=== PATIENT | female | born 1995 ===

== ENCOUNTER 2017-04-11 14:36 | Emergency (ER) | payer BC, OTHER ==
--- NOTE | 2017-04-11 15:22 | EDM.PDOC ---
ED HPI GENERAL MEDICAL PROBLEM - General Chief Complaint: Lower Extremity Injury/Pain Stated Complaint: POSS. BLOOD CLOT Time Seen by Provider: 04/11/17 14:58 Source of Information: Reports: Patient History Limitations: Reports: No Limitations - History of Present Illness INITIAL COMMENTS - FREE TEXT/NARRATIVE: Patient is a 21 year old female who presents to the E.D. complaining of right thigh swelling and inner thigh pain. Patient states Monday night she was walking down a few stairs missed the last two steps falling landing on her knee causing slight bruising to her right cloud. States her low back was strained at that time and has been evaluated by a chiropractor with only massage as treatment. Patient states this a.m. awoke with swelling to the right thigh and pain. She is concerned about a blood clot. Also has mild pain to the adnexal area with onset of swelling today. She has full range of motion of her lower extremities. Notices increased pain to the inner thigh with weightbearing. She has no history of DVT/PE, recent hospitalization, cancer, smoking history, being , recent surgery, or bed confinement. Patient does take control. She does not have any additional past medical history and currently taking no additional medications. Surgical history noncontributory. She denies any chest pain, shortness of breath, fever, numbness or tingling to extremities , pain to the posterior aspect of right calf, or any additional complaint. Right Lower Leg Pain Score (Numeric/FACES): 5 - Related Data Allergies Allergy/AdvReac Type Severity Reaction Status Date / Time No Known Allergies Allergy Verified 04/13/17 06:26 Home Meds: Home Meds Hydrocodone/Acetaminophen [[place] 5-325 Tablet] 1 each PO QID PRN #15 tablet [Rx] Apixaban [Eliquis] 10 tab PO BID 04/12/17 [History] Past Medical History - Past Surgical History HEENT Surgical History: Reports: Tonsillectomy Social & Family History - Family History Family Medical History: Noncontributory - Tobacco Use Smoking Status *Q: Never Smoker Second Hand Smoke Exposure: No - Caffeine Use Caffeine Use: Reports: Coffee, Soda - Recreational Drug Use Recreational Drug Use: No - Living Situation & Occupation Living situation: Reports: Single Occupation: Unemployed Review of Systems - Review of Systems Review Of Systems: ROS reveals no pertinent complaints other than HPI. ED EXAM, GENERAL - Physical Exam Exam: See Below Exam Limited By: No Limitations General Appearance: Alert, WD/WN, No Apparent Distress Ears: Hearing Grossly Normal Nose: Normal Inspection Throat/Mouth: Normal Voice, No Airway Compromise Head: Atraumatic, Normocephalic Neck: Normal Inspection, Supple Respiratory/Chest: No Respiratory Distress, Lungs Clear, Normal Breath Sounds, No Accessory Muscle Use Cardiovascular: Normal Peripheral Pulses, Regular Rate, Rhythm, No Murmur Peripheral Pulses: 4+: Radial (L), Posterior Tibial (L), Posterior Tibial (R) GI/Abdominal: Normal Bowel Sounds, Soft, Non-Tender, No Organomegaly, No Distention Back Exam: Normal Inspection Extremities: Other (Swelling noted to the right thigh incomparison to the left. Thigh is taunt painful on palpation with no ecchymosis or redness present. No bony abnormalities noted as well. Increasing pain along the medial aspect of the left right inner thigh along the inguinal region. No ecchymosis, bony abnormalities present. No wounds present or redness. Decreased range of motion noted with flexion and extension of the upper leg at the hip. Pain along the PIP proximal surface. No pain to the lateral aspect of the right hip. Mild ecchymosis noted to the anterior aspect of the right lower leg. No pain along the posterior aspect of the calf. Full range of motion distal to the knee along with no sensory deficits.) Neurological: Alert, Oriented, CN II-XII Intact, Normal Cognition, No Motor/ Sensory Deficits Psychiatric: Normal Affect, Normal Mood Skin Exam: Warm, Dry, Intact, Normal Color Course - Vital Signs Last Recorded V/S: Last Vital Signs Temp 98.2 F 04/11/17 19:19 Pulse 97 04/11/17 19:19 Resp 20 04/11/17 19:52 BP 111/75 04/11/17 19:52 Pulse Ox 98 04/11/17 19:52 - Orders/Labs/Meds Labs: Laboratory Tests 04/11/17 04/11/17 04/11/17 Range/Units 15:45 15:45 15:45 WBC 10.65 H (3.98-10.04) K/mm3 RBC 4.65 (3.98-5.22) M/mm3 Hgb 13.5 (11.2-15.7) gm/L Hct 41.1 (34.1-44.9) % MCV 88.4 (79.4-94.8) fl MCH 29.0 (25.6-32.2) pg MCHC 32.8 (32.2-35.5) g/dl RDW Std Deviation 41.1 (36.4-46.3) fL Plt Count 309 (182-369) K/mm3 MPV 9.5 (9.4-12.3) fl Neut % (Auto) 77.3 H (34.0-71.1) % Lymph % (Auto) 14.6 L (19.3-51.7) % Spencer % (Auto) 6.9 (4.7-12.5) % Eos % (Auto) 0.8 (0.7-5.8) Baso % (Auto) 0.2 (0.1-1.2) % Neut # (Auto) 8.22 H (1.56-6.13) K/mm3 Lymph # (Auto) 1.56 (1.18-3.74) K/mm3 Spencer # (Auto) 0.74 H (0.24-0.36) K/mm3 Eos # (Auto) 0.09 (0.04-0.36) K/mm3 Baso # (Auto) 0.02 (0.01-0.08) K/mm3 D-Dimer, Quantitative 11.93 H (0.19-0.59) mg/L Sodium 139 (136-145) mEq/L Potassium 4.8 (3.5-5.1) mEq/L Chloride 105 (98-107) mEq/L Carbon Dioxide 22 (21-32) mEq/L Anion Gap 16.8 H (5-15) BUN 7 (7-18) mg/dL Creatinine 0.8 (0.55-1.02) mg/dL Est Cr Clr Drug Dosing 109.08 mL/min Estimated GFR (MDRD) > 60 (>60) mL/min BUN/Creatinine Ratio 8.8 L (14-18) Glucose 90 (74-106) mg/dL Calcium 9.1 (8.5-10.1) mg/dL Total Bilirubin 0.5 (0.2-1.0) mg/dL AST 16 (15-37) U/L ALT 10 L (14-59) U/L Alkaline Phosphatase 61 (46-116) U/L Total Protein 7.6 (6.4-8.2) g/dl Albumin 3.4 (3.4-5.0) g/dl Globulin 4.2 gm/dL Albumin/Globulin Ratio 0.8 L (1-2) HCG, Qual (NEGATIVE) 04/11/17 Range/Units 15:45 WBC (3.98-10.04) K/mm3 RBC (3.98-5.22) M/mm3 Hgb (11.2-15.7) gm/L Hct (34.1-44.9) % MCV (79.4-94.8) fl MCH (25.6-32.2) pg MCHC (32.2-35.5) g/dl RDW Std Deviation (36.4-46.3) fL Plt Count (182-369) K/mm3 MPV (9.4-12.3) fl Neut % (Auto) (34.0-71.1) % Lymph % (Auto) (19.3-51.7) % Spencer % (Auto) (4.7-12.5) % Eos % (Auto) (0.7-5.8) Baso % (Auto) (0.1-1.2) % Neut # (Auto) (1.56-6.13) K/mm3 Lymph # (Auto) (1.18-3.74) K/mm3 Spencer # (Auto) (0.24-0.36) K/mm3 Eos # (Auto) (0.04-0.36) K/mm3 Baso # (Auto) (0.01-0.08) K/mm3 D-Dimer, Quantitative (0.19-0.59) mg/L Sodium (136-145) mEq/L Potassium (3.5-5.1) mEq/L Chloride (98-107) mEq/L Carbon Dioxide (21-32) mEq/L Anion Gap (5-15) BUN (7-18) mg/dL Creatinine (0.55-1.02) mg/dL Est Cr Clr Drug Dosing mL/min Estimated GFR (MDRD) (>60) mL/min BUN/Creatinine Ratio (14-18) Glucose (74-106) mg/dL Calcium (8.5-10.1) mg/dL Total Bilirubin (0.2-1.0) mg/dL AST (15-37) U/L ALT (14-59) U/L Alkaline Phosphatase (46-116) U/L Total Protein (6.4-8.2) g/dl Albumin (3.4-5.0) g/dl Globulin gm/dL Albumin/Globulin Ratio (1-2) HCG, Qual Negative (NEGATIVE) Meds: Medications Discontinued Medications Generic Name Dose Route Start Last Admin Trade Name Onurq PRN Reason Stop Dose Admin Hydrocodone Bitart/Acetaminophen 1 tab 04/11/17 19:48 [place] 325-5 Mg PO 04/11/17 19:49 ONETIME ONE Apixaban 10 mg 04/11/17 19:12 04/11/17 19:29 Eliquis PO 04/11/17 19:13 10 mg ONETIME ONE Administration Iopamidol 100 ml 04/11/17 18:18 04/11/17 18:36 Isovue-370 (76%) IVPUSH 04/11/17 18:19 100 ml ONETIME ONE Administration Sodium Chloride 10 ml 04/11/17 18:18 04/11/17 18:36 Saline Flush FLUSH 04/11/17 18:19 10 ml ONETIME ONE Administration - Re-Assessments/Exams Free Text/Narrative Re-Assessment/Exam: Will obtain basic labs including CBC, chem 14, hcg, d-dimer, x-ray of the femur , and x-ray of the pelvis. 04/11/17 15:42 x-ray of the right femur and also pelvis did not reveal any acute bony abnormalities. Awaiting results of the above labs. 04/11/17 16:30 d-dimer 11.93. Ordered VL duplex right lower extremity. 1736 Right lower extremity deep venous ultrasound: Duplex and color flow imaging was obtained of the right common femoral, greater saphenous, superficial femoral, popliteal, posterior tibial and peroneal veins. Left common femoral vein was also evaluated. Findings: Increased echoes are identified within the right common femoral through popliteal veins. Findings are felt compatible with acute deep venous thrombosis which is incompletely occluding at this time. Left common femoral vein is patent. Impression: 1. Findings compatible with DVT as noted above. Reassessment, shared results of ultrasound with patient. Patient complaining of right adnexal pain described as severe in nature. Will order CT of the abdomen and pelvis with IV contrast with a [address] Cardona. Awaiting results of CT of the abdomen and pelvis. Discussed with patient and mother pro's and con's with taking warfarin, xarelto, and eliquis. Benefits, alternatives, and risks of all medications discussed with patient in great detail. All questions answered. Patient has elected to go with eliquis. Mother stated she had a history of blood clot to her lung this past year after traveling to [place] with her right arm bent for extended period of time. In addition grandmother has a history of blood clots as well. Mother was on Eliquis for quite some time and has transitioned to aspirin on her own accord. She has not been worked up for any hypercoagulable states. Patient will require further workup to rule out hypercoagulable states. Suggest patient follow-up with hematology. In addition she has no primary care provider here locally thus will have patient establish medical care with a PCP at [facility] in [place] within the next week. Will hold off and starting the Eliquis until CT results are back. 04/11/17 19:16 CT abdomen and pelvis Technique: Multiple axial sections were obtained from above the dome of the diaphragm inferiorly through the pubic symphysis. Intravenous contrast given. Findings: Clot is identified within the right common femoral vein extending into the right external iliac vein and right common femoral vein. Inferior vena cava appears to be patent. Visualized lung bases are clear. Liver and spleen appear within normal limits. Incidental note of focal fat near the ligamentum teres fissure. Kidneys show symmetric contrast enhancement without hydronephrosis or mass. Pancreas is within normal limits. Aorta appears unremarkable. No retroperitoneal adenopathy or mesenteric abnormalities are seen. Small amount of free fluid is seen within the cul-de-sac sac believed to be physiologic. No pelvic mass or adenopathy is seen. Appendix is seen which appears normal in size. Bone window settings were reviewed which appears within normal limits for the patient's age. Impression: 1. Diffuse clot within the right common femoral, external iliac and common iliac vein. These veins appear distended with no evidence of other etiology for obstruction. This clot puts the patient at risk for pulmonary embolism. 2. Other incidental findings as noted above. Ordered Eliquis 10mg PO. Discussed results of CT with patient and mother. I am concerned patient may throw a clot and develop PE due to the extensive clot burden present. I have suggested admission to the hospital for the next few days for monitoring. Patient does not want to be transferred to [place] for evaluation for filter placement. Vital signs are stable. SPO2 remains 100% with HR of 98 BPM. [address] Vargas with no answer. Message left for him to call the E.D. Spoke with Dr. Vargas. Does not believe patient requires hospitalization with normal vital signs and patient eliciting no chest pain or shortness of breath. Discussed with family and they were okay with going home. Do not believe patient requires transfer to [place] at this time. Discussed multiple times with patient and family in regards to return precautions. Patient and family have no additional questions or concerns will discharge patient home with instructions as documented. Departure - Departure Time of Disposition: 19:48 Disposition: Home, Self-Care 01 Condition: Good Clinical Impression: Right leg DVT Qualifiers: Affected thrombotic vein of extremity: femoral Chronicity: acute Qualified Code (s): I82.411 - Acute embolism and thrombosis of right femoral vein - Discharge Information Prescriptions: Hydrocodone/Acetaminophen [[place] 5-325 Tablet] 1 each PO QID PRN #15 tablet PRN Reason: Pain (Severe 7-10) Instructions: Deep Vein Thrombosis Referrals: La Nena Amaya [Physician] - Forms: ED Department Discharge, ED Return to Work/School Form Additional Instructions: Take eliquis 10 mg twice a day for 7 days. Thereafter 5mg's twice a day. For severe pain take norco 1 tab every 6 hrs as needed. May use tylenol 650mg every 6 hrs for mild to moderate pain as needed. Do not take tylenol and norco together. Push the fluids. Stop control pills. Followup with a PCP Dr. Sutton/ or Dr. Loaiza at [facility] this week or first part of next wk. Will need followup with Hemotology in the next 2 wks. Suggest calling for appt for PCP and Hematology tomorrow. Refrain from any strenuous activities. Be advised eliquis will increase risk to bleeding if you hit your head and also GI. Please return to the E.D. if you develop shortness of breath , chest pain, or any additional complaints. No driving this evening since receiving a sedative medication while in the E.d.No driving while taking the norco.
--- NOTE | 2017-04-11 17:40 | US ---
Right lower extremity deep venous ultrasound: Duplex and color flow imaging was obtained of the right common femoral, greater saphenous, superficial femoral, popliteal, posterior tibial and peroneal veins. Left common femoral vein was also evaluated. Findings: Increased echoes are identified within the right common femoral through popliteal veins. Findings are felt compatible with acute deep venous thrombosis which is incompletely occluding at this time. Left common femoral vein is patent. Impression: 1. Findings compatible with DVT as noted above. Diagnostic code #5
[2017-04-11] MEDS ORDERED: Iopamidol 755 Mg/ML 100 ML Bottle IVPUSH ONE (18:18)
[2017-04-11] MEDS ORDERED: Sodium Chloride 0.9% 10 ML Syringe FLUSH ONE (18:18)
--- NOTE | 2017-04-11 19:02 | CT ---
Addendum: Clot within the right iliac region shows some discrepancy on previous report between the body and impression. Below is the correct description. Clot involves the right common femoral vein, right external iliac vein and right common iliac vein. --- Addendum1 above dictated on [04/12/2017 16:12] by [Mellissa Cardona Hilton J.] --- --- Addendum1 above signed on [04/12/2017 16:14] by [Mellissa Cardona Hilton J.] --- --- Original report below dictated on [04/11/2017 18:57] by [Mellissa Cardona, Arturo Pacheco] --- --- Original report below signed on [04/11/2017 18:59] by [Mellissa Cardona, Arturo Pacheco] --- CT abdomen and pelvis Technique: Multiple axial sections were obtained from above the dome of the diaphragm inferiorly through the pubic symphysis. Intravenous contrast given. Findings: Clot is identified within the right common femoral vein extending into the right external iliac vein and right common femoral vein. Inferior vena cava appears to be patent. Visualized lung bases are clear. Liver and spleen appear within normal limits. Incidental note of focal fat near the ligamentum teres fissure. Kidneys show symmetric contrast enhancement without hydronephrosis or mass. Pancreas is within normal limits. Aorta appears unremarkable. No retroperitoneal adenopathy or mesenteric abnormalities are seen. Small amount of free fluid is seen within the cul-de-sac sac believed to be physiologic. No pelvic mass or adenopathy is seen. Appendix is seen which appears normal in size. Bone window settings were reviewed which appears within normal limits for the patient's age. Impression: 1. Diffuse clot within the right common femoral, external iliac and common iliac vein. These veins appear distended with no evidence of other etiology for obstruction. This clot puts the patient at risk for pulmonary embolism. 2. Other incidental findings as noted above. Diagnostic code #5 --- Addendum1 signed ---
[2017-04-11] MEDS ORDERED: Apixaban 5 MG Tab PO ONE (19:12)
[2017-04-11] MEDS ORDERED: Acetaminophen/HYDROcodone 325-5 MG Tab PO ONE (19:48)
[2017-04-11 20:14] VITALS: BP 111/75
--- NOTE | 2017-04-12 06:48 | CR ---
Pelvis: AP view of the pelvis was obtained. Comparison: No prior pelvis study. Joint spaces within both hips are maintained. Sacroiliac joints appear within normal limits. No fracture or other abnormality is identified. Impression: 1. No abnormality is identified on AP pelvis study. Diagnostic code #1
--- NOTE | 2017-04-12 06:48 | CR ---
Right femur: AP and lateral views of the right femur were obtained. No acute fracture or other abnormality is appreciated. Impression: 1. No abnormality is identified on two-view right femur study. Diagnostic code #1
== END 2017-04-11 20:02 | disposition home or self-care (01) ==
LOC: JD.ED 14:36
DX: I82.411 Acute embolism and thrombosis of right femoral vein (principal)
CPT/HCPCS: 36415; 72170; 73552; 74177; 80053; 84703; 85025; 85379; 93971; 99285; A9270; J7050; Q9967

== ENCOUNTER 2017-04-12 19:11 | Inpatient (IN) | payer BC ==
[2017-04-12] MEDS ORDERED: Sodium Chloride 0.9% 10 ML Syringe FLUSH PRN ×2 (19:32→19:57)
[2017-04-12] MEDS ORDERED: HYDROmorphone 1 MG/ML Syringe IVPUSH ONE ×2 (19:34→21:07)
[2017-04-12] MEDS ORDERED: Iopamidol 755 Mg/ML 100 ML Bottle IVPUSH ONE (19:57)
--- NOTE | 2017-04-12 19:58 | EDM.PDOC ---
ED HPI GENERAL MEDICAL PROBLEM - General Chief Complaint: Cardiovascular Problem Stated Complaint: BLOOT CLOT ISSUES HERE YESTERDAY Time Seen by Provider: 04/12/17 19:24 Source of Information: Reports: Patient History Limitations: Reports: No Limitations - History of Present Illness INITIAL COMMENTS - FREE TEXT/NARRATIVE: The patient presents with right leg pain and edema. She was here yesterday and diagnosed with a DVT. The DVT is in the right common femoral through the popliteal veins that are incompletely occluded. She also has diffuse clot within the right common femoral, external iliac and common iliac vein. She was put on eliquis and she had 2 doses of 10mgs. She has more pain in her leg and edema. She also has numbness to her right foot. She has been using crutches to get around and using hydrocodone every 6 hours for pain. She was using control and that has been stopped. Her mother and grandmother both have history of blood clots. She denies chest pain or shortness of breath. She had a low grade temp at home. She has some right sided abdominal pain. She has not had a BM for a couple days. She has no cough or congestion. She does not smoke. She says she fell down some stairs on Monday and hurt her low back and right buttock. She had been resting the weekend and she saw a chiropractor on Monday. Monday morning she had pain and edema to her right leg. Onset: Gradual Duration: Day(s): (2) Location: Reports: Abdomen, Lower Extremity, Right Quality: Reports: Ache Severity: Moderate Improves with: Reports: None Worsens with: Reports: None Associated Symptoms: Reports: Fever/Chills. Denies: Chest Pain, Cough, Headaches, Nausea/Vomiting, Shortness of Breath Right Upper Leg Pain Score (Numeric/FACES): 10 - Related Data Allergies Allergy/AdvReac Type Severity Reaction Status Date / Time No Known Allergies Allergy Verified 04/11/17 14:55 Home Meds: Home Meds Hydrocodone/Acetaminophen [Te[place]y 5-325 Tablet] 1 each PO QID PRN #15 tablet [Rx] Apixaban [Eliquis] 10 tab PO BID 04/12/17 [History] Past Medical History Cardiovascular History: Reports: Blood Clots/VTE/DVT - Past Surgical History HEENT Surgical History: Reports: Tonsillectomy Social & Family History - Family History Family Medical History: Noncontributory - Tobacco Use Smoking Status *Q: Never Smoker Second Hand Smoke Exposure: No - Caffeine Use Caffeine Use: Reports: Tea - Recreational Drug Use Recreational Drug Use: No - Living Situation & Occupation Living situation: Reports: Single Occupation: Unemployed ED ROS GENERAL - Review of Systems Review Of Systems: See Below Constitutional: Reports: Fever, Chills HEENT: Reports: No Symptoms Respiratory: Reports: No Symptoms Cardiovascular: Reports: No Symptoms Endocrine: Reports: No Symptoms GI/Abdominal: Reports: No Symptoms : Reports: No Symptoms Musculoskeletal: Reports: Other (Edema and pain to her right leg) ED EXAM, GENERAL - Physical Exam Exam: See Below Exam Limited By: No Limitations General Appearance: Alert, No Apparent Distress Ears: Normal External Exam Nose: Normal Inspection Head: Atraumatic, Normocephalic Neck: Normal Inspection Respiratory/Chest: No Respiratory Distress, Lungs Clear, Normal Breath Sounds Cardiovascular: Regular Rate, Rhythm, No Edema, No Murmur GI/Abdominal: Soft, Non-Tender, No Organomegaly, No Mass Extremities: Other (Mild to moderate edema to her right leg. Good pulses distally. Numbness to the right leg as compared to the left leg.) Course - Vital Signs Last Recorded V/S: Last Vital Signs Temp 98.4 F 04/12/17 19:28 Pulse 110 H 04/13/17 04:30 Resp 14 04/13/17 04:30 BP 114/75 04/13/17 04:00 Pulse Ox 94 L 04/13/17 04:30 - Orders/Labs/Meds Orders: Active Orders 24 hr Category Date Time Status Admission Status [Patient Status] [ADT] Routine ADT 04/13/17 05:23 Active Cardiac Monitoring [RC] . DIRECTED Care 04/12/17 19:33 Active EKG Documentation Completion [RC] ASDIRECTED Care 04/12/17 21:39 Active Peripheral IV Care [RC] . DIRECTED Care 04/12/17 19:33 Active Ang Chest [CT] Stat Exams 04/12/17 19:34 Taken HYDROmorphone [Dilaudid] Med 04/13/17 01:13 Active 0.5 mg IVPUSH Q1H PRN Sodium Chloride 0.9% [Normal Saline] 1,000 ml Med 04/12/17 19:45 Active IV ASDIRECTED Sodium Chloride 0.9% [Normal Saline] 100 ml Med 04/12/17 20:00 Active IV ASDIRECTED Sodium Chloride 0.9% [Saline Flush] Med 04/12/17 19:32 Active 10 ml FLUSH ASDIRECTED PRN Sodium Chloride 0.9% [Saline Flush] Med 04/12/17 19:57 Active 10 ml FLUSH ONETIME PRN Peripheral IV Insertion Adult [OM.PC] Stat Oth 04/12/17 19:32 Ordered EKG 12 Lead [EK] Stat Ther 04/12/17 21:39 Ordered Medication Orders Hydromorphone HCl (Dilaudid) 0.5 mg IVPUSH Q1H PRN PRN Reason: Pain Last Admin: 04/13/17 04:30 Dose: 0.5 mg Admin: 04/13/17 03:36 Dose: 0.5 mg Admin: 04/13/17 02:29 Dose: 0.5 mg Admin: 04/13/17 01:23 Dose: 0.5 mg Sodium Chloride (Normal Saline) 1,000 mls @ 125 mls/hr IV ASDIRECTED SUKHI Last Admin: 04/13/17 04:21 Dose: 125 mls/hr Infusion: 04/13/17 04:02 Dose: 125 mls/hr Admin: 04/12/17 20:02 Dose: 125 mls/hr Sodium Chloride (Normal Saline) 100 mls @ 75 mls/hr IV ASDIRECTED SUKHI Last Admin: 04/12/17 20:26 Dose: 75 mls/hr Sodium Chloride (Saline Flush) 10 ml FLUSH ASDIRECTED PRN PRN Reason: Keep Vein Open Last Admin: 04/12/17 20:06 Dose: 10 ml Sodium Chloride (Saline Flush) 10 ml FLUSH ONETIME PRN PRN Reason: IV FLUSH Last Admin: 04/12/17 20:26 Dose: 10 ml Labs: Laboratory Tests 04/12/17 04/12/17 Range/Units 20:07 20:07 WBC 10.21 H (3.98-10.04) K/mm3 RBC 4.16 (3.98-5.22) M/mm3 Hgb 12.1 (11.2-15.7) gm/L Hct 37.0 (34.1-44.9) % MCV 88.9 (79.4-94.8) fl MCH 29.1 (25.6-32.2) pg MCHC 32.7 (32.2-35.5) g/dl RDW Std Deviation 40.9 (36.4-46.3) fL Plt Count 284 (182-369) K/mm3 MPV 9.4 (9.4-12.3) fl Neut % (Auto) 71.0 (34.0-71.1) % Lymph % (Auto) 19.0 L (19.3-51.7) % [place] % (Auto) 7.8 (4.7-12.5) % Eos % (Auto) 1.8 (0.7-5.8) Baso % (Auto) 0.2 (0.1-1.2) % Neut # (Auto) 7.25 H (1.56-6.13) K/mm3 Lymph # (Auto) 1.94 (1.18-3.74) K/mm3 [place] # (Auto) 0.80 H (0.24-0.36) K/mm3 Eos # (Auto) 0.18 (0.04-0.36) K/mm3 Baso # (Auto) 0.02 (0.01-0.08) K/mm3 Sodium 139 (136-145) mEq/L Potassium 4.0 (3.5-5.1) mEq/L Chloride 105 (98-107) mEq/L Carbon Dioxide 22 (21-32) mEq/L Anion Gap 16.0 H (5-15) BUN 7 (7-18) mg/dL Creatinine 0.9 (0.55-1.02) mg/dL Est Cr Clr Drug Dosing 100.58 mL/min Estimated GFR (MDRD) > 60 (>60) mL/min BUN/Creatinine Ratio 7.8 L (14-18) Glucose 93 (74-106) mg/dL Calcium 8.6 (8.5-10.1) mg/dL Total Bilirubin 0.5 (0.2-1.0) mg/dL AST 14 L (15-37) U/L ALT 17 (14-59) U/L Alkaline Phosphatase 51 (46-116) U/L Total Protein 6.8 (6.4-8.2) g/dl Albumin 2.9 L (3.4-5.0) g/dl Globulin 3.9 gm/dL Albumin/Globulin Ratio 0.7 L (1-2) Meds: Medications Generic Name Dose Route Start Last Admin Trade Name Jose Raul PRN Reason Stop Dose Admin Hydromorphone HCl 0.5 mg 04/13/17 01:13 04/13/17 04:30 Dilaudid IVPUSH 0.5 mg Q1H PRN Administration Pain Sodium Chloride 1,000 mls @ 125 mls/hr 04/12/17 19:45 04/13/17 04:21 Normal Saline IV 125 mls/hr ASDIRECTED SUKHI Administration Sodium Chloride 100 mls @ 75 mls/hr 04/12/17 20:00 04/12/17 20:26 Normal Saline IV 75 mls/hr ASDIRECTED SUKHI Administration Sodium Chloride 10 ml 04/12/17 19:32 04/12/17 20:06 Saline Flush FLUSH 10 ml ASDIRECTED PRN Administration Keep Vein Open Sodium Chloride 10 ml 04/12/17 19:57 04/12/17 20:26 Saline Flush FLUSH 10 ml ONETIME PRN Administration IV FLUSH Discontinued Medications Generic Name Dose Route Start Last Admin Trade Name Jose Raul PRN Reason Stop Dose Admin Hydromorphone HCl 1 mg 04/12/17 19:34 04/12/17 20:03 Dilaudid IVPUSH 04/12/17 19:35 1 mg ONETIME ONE Administration Hydromorphone HCl 1 mg 04/12/17 21:07 04/12/17 21:12 Dilaudid IVPUSH 04/12/17 21:08 1 mg ONETIME ONE Administration Hydromorphone HCl 0.5 mg 04/12/17 22:06 04/12/17 22:11 Dilaudid IVPUSH 04/12/17 22:07 0.5 mg ONETIME ONE Administration Iopamidol 100 ml 04/12/17 19:57 04/12/17 20:26 [id number] (76%) IVPUSH 04/12/17 19:58 60 ml ONETIME ONE Administration - Re-Assessments/Exams Free Text/Narrative Re-Assessment/Exam: 04/12/17 20:20 I ordered an IV NS at 125mL/hr, labs, a CT angio of her chest and dilaudid 1mg IV. 04/12/17 20:32 The patient asked it she could take her eliquis. I said that was okay. 04/12/17 23:56 Her CBC and CMP look good. The CT of her chest show fairly extensive acute pulmonary embolism involving at least the lower lobes and to lesser extent the left upper lobe. She had more pain so I ordered more dilaudid 1mg IV. I feel she needs to be admitted. I called Dr Vargas and he agreed. I talked with the patient again and she was wondering if the patient would be a candidate for any type of surgical intervention. I called [facility] and I talked with Dr Diana and he was not sure if she was. I then talked to Dr Cisneros the interventional radiologist and he thought he could help her. [facility] did not have an ICU bed and that would be needed. I will hold her until morning to see if they have an ICU bed. If they do, I will ship her then and if they do not then she will be admitted here. 04/13/17 05:[address] [facility] and it looks like they will be moving 3 patients out of their ICU and they should be able to take her in the afternoon sometime. She will need to go to the floor then. I talked to Dr Vargas about the plan earlier. Departure - Departure Time of Disposition: 17:30 Disposition: Admitted As Inpatient 67 Condition: Serious Clinical Impression: Right leg DVT Qualifiers: Affected thrombotic vein of extremity: femoral Chronicity: acute Qualified Code (s): I82.411 - Acute embolism and thrombosis of right femoral vein Pulmonary embolism Qualifiers: Pulmonary embolism type: other Chronicity: acute Acute cor pulmonale presence: without acute cor pulmonale Qualified Code(s): I26.99 - Other pulmonary embolism without acute cor pulmonale - My Orders Last 24 Hours: My Active Orders 04/12/17 19:32 Sodium Chloride 0.9% [Saline Flush] 10 ml FLUSH ASDIRECTED PRN Peripheral IV Insertion Adult [OM.PC] Stat 04/12/17 19:33 Cardiac Monitoring [RC] . DIRECTED Peripheral IV Care [RC] . DIRECTED 04/12/17 19:34 Ang Chest [CT] Stat 04/12/17 19:45 Sodium Chloride 0.9% [Normal Saline] 1,000 ml IV ASDIRECTED 04/12/17 19:57 Sodium Chloride 0.9% [Saline Flush] 10 ml FLUSH ONETIME PRN 04/12/17 20:00 Sodium Chloride 0.9% [Normal Saline] 100 ml IV ASDIRECTED 04/12/17 21:39 EKG Documentation Completion [RC] ASDIRECTED EKG 12 Lead [EK] Stat 04/13/17 01:13 HYDROmorphone [Dilaudid] 0.5 mg IVPUSH Q1H PRN 04/13/17 05:23 Admission Status [Patient Status] [ADT] Routine - Assessment/Plan Last 24 Hours: My Active Orders 04/12/17 19:32 Sodium Chloride 0.9% [Saline Flush] 10 ml FLUSH ASDIRECTED PRN Peripheral IV Insertion Adult [OM.PC] Stat 04/12/17 19:33 Cardiac Monitoring [RC] . DIRECTED Peripheral IV Care [RC] . DIRECTED 04/12/17 19:34 Ang Chest [CT] Stat 04/12/17 19:45 Sodium Chloride 0.9% [Normal Saline] 1,000 ml IV ASDIRECTED 04/12/17 19:57 Sodium Chloride 0.9% [Saline Flush] 10 ml FLUSH ONETIME PRN 04/12/17 20:00 Sodium Chloride 0.9% [Normal Saline] 100 ml IV ASDIRECTED 04/12/17 21:39 EKG Documentation Completion [RC] ASDIRECTED EKG 12 Lead [EK] Stat 04/13/17 01:13 HYDROmorphone [Dilaudid] 0.5 mg IVPUSH Q1H PRN 04/13/17 05:23 Admission Status [Patient Status] [ADT] Routine
[2017-04-12] MEDS ORDERED: Sodium Chloride 0.9% 100 ML IV SCH (20:00)
[2017-04-12] MEDS: Sodium Chloride 0.9% 1,000 ML IV SCH (20:02)
[2017-04-12] MEDS ORDERED: HYDROmorphone 0.5 MG/0.5 ML Syringe IVPUSH ONE (22:06)
[2017-04-13] MEDS: HYDROmorphone 0.5 MG/0.5 ML Syringe IVPUSH PRN ×8 (01:23→14:10)
[2017-04-13] MEDS: Sodium Chloride 0.9% 1,000 ML IV SCH ×2 (04:21→11:59)
[2017-04-13] MEDS ORDERED: Ketorolac 30 MG/ML SDV IVPUSH ONE (05:34)
--- NOTE | 2017-04-13 07:29 | CT ---
CT chest Technique: Multiple axial sections through the chest were obtained. Intravenous contrast was utilized. Study has been performed as a pulmonary angiogram protocol. Findings: Filling defects identified within the segmental and subsegmental branches of both lower lungs. Mild amount of thrombus identified within segmental branch of the left upper lung.. Mediastinum and hilar regions show no adenopathy or mass. No pericardial thickening is seen. Small portion of the visualized upper abdominal structures are within normal limits. Lungs are clear. Bony structures appear within normal limits for the patient's age. Impression: 1. Pulmonary emboli within both lower lungs involving segmental and subsegmental pulmonary arteries. 2. No additional abnormality is identified on CT study of the chest. Diagnostic code #5 Agree with preliminary report issued by [facility] ([facility] preliminary report dictated on 04/12/17, 9:44 PM Central Time)
[2017-04-13] MEDS ORDERED: Temazepam 7.5 MG Cap PO PRN (10:31)
[2017-04-13] MEDS ORDERED: Albuterol 0.083% 2.5 MG/3 ML Neb Soln NEB PRN (10:31)
[2017-04-13] MEDS ORDERED: Docusate Sodium 100 MG Cap PO PRN (10:31)
[2017-04-13] MEDS ORDERED: Ondansetron 4 MG/2 ML SDV IV PRN (10:31)
[2017-04-13] MEDS ORDERED: Acetaminophen/oxyCODONE 325-5 MG Tab PO PRN (10:31)
[2017-04-13] MEDS ORDERED: Ondansetron 4 MG Tab.DIS PO PRN (10:31)
[2017-04-13] MEDS ORDERED: Magnesium Hydroxide 400 MG/5 ML Susp 30 ML Cup PO PRN (10:31)
--- NOTE | 2017-04-13 10:55 | PCM.HP ---
H&P History of Present Illness - General Date of Service: 04/13/17 Source of Information: Patient, Other (ED records) - History of Present Illness Initial Comments - Free Text/Narative: Soco is a pleasant 21yo female admitted to medical surgical floor for right LE DVT and now new bilateral PE's. At time of my visit she is resting comfortably, sleeping in bed. She has received dilaudid for pain to her right leg per nursing. States leg pain is still present. VSS on RA at current time. She was initially seen in the ED on 04/11/17, 2 days ago with right leg, thigh and right adnexal pain s/p fall down steps at home a few days prior, 04/07. She had seen her chiropractor who did some massage therapy to her right leg and an adjustment. Since that time her right leg has become more swollen and painful, specifically to medial thigh. D-dimer done on 04/11/17 was elevated at 11.93. Venous doppler was obtained showing acute DVT, incompletely occluding at that time of the right common femoral through popliteal veins. Left common femoral vein was patent. She also underwent CT of the abdomen and pelvis due to adnexal pain and discomfort with findings as follows per Radiologist report: :" Diffuse clot within the right common femoral, external iliac and common iliac vein. These veins appear distended with no evidence of other etiology for obstruction. This clot puts the patient at risk for pulmonary embolism." Anticoagulant options were reviewed with her and her mother, they elected eliquis. She was started on Eliquis 10mg BID. She was also offered hospitalization for close monitoring but they deferred at that time. She returns today with worsening of pain and swelling to her right leg/thigh. She is ambulating with crutches and using hydrocodone every 6 hours for the pain. She has noted intermittent numbness to her right foot the past day or so. She denies cough, SOB or dizziness. ED workup is with labs showing CBC of 10.21, H&H of 12.1 and 37.0, Plt normal at 284. CMP essentially unremarkable aside from AG of 16.0 and low AST of 14, low albumin of 2.9. BUN/Creat WNL at [address] angiogram of the chest was performed showing bilateral pulmonary emboli. Dr Gallardo, ED Physician did call [facility] in [place], talked with interventional radiologist Dr. Martins who thought he would be able to assist with the DVT with intervention, however there were no ICU beds available where she would need to be placed after intervention. She was watched in ED overnight , medicated for pain with 4 doses of dilaudid and hydrated with IVF. Dr. Gallardo attempted call again for transfer but again no beds available. Decision is made to admit her here as inpatient for monitoring until beds open in [place] for transfer and IR treatment for this extensive DVT. VTE risk factors: family history in mother and grandmother for DVT's (no coagulopathy workup has been done on either) and OCP use prior to 2 days ago. She does not smoke, not obese, no hx of cancer or - HCG was negative on initial ED visit. Patient is Full Code status. She does not have PCP. Onset of Symptoms: Reports: Sudden (04/10/17---s/p fall down stairs on 04/07/17) Location: Reports: Lower Extremity, Right, Radiates to (upper thigh/groin) Quality: Reports: Ache Improves with: Reports: Medication (pain medication-short term) Worsens with: Reports: Movement Context: Reports: Other (DVT s/p ) Associated Symptoms: Reports: Other (s/p Fall down steps--no other associated injuries at time of fall) Right Upper Leg Pain Score (Numeric/FACES): 10 - Related Data Allergies/Adverse Reactions: Allergies Allergy/AdvReac Type Severity Reaction Status Date / Time No Known Allergies Allergy Verified 04/13/17 06:26 Home Medications: Home Meds Hydrocodone/Acetaminophen [[place] 5-325 Tablet] 1 each PO QID PRN #15 tablet [Rx] Apixaban [Eliquis] 10 tab PO BID 04/12/17 [History] Past Medical History HEENT History: Reports: None Cardiovascular History: Reports: Blood Clots/VTE/DVT Respiratory History: Reports: None Gastrointestinal History: Reports: GERD Genitourinary History: Reports: None [employer] History: Reports: Other (See Below) Other OB/BYN History: taking control to help regulate menstural cycles Musculoskeletal History: Reports: None Neurological History: Reports: None Psychiatric History: Reports: None Endocrine/Metabolic History: Reports: None Hematologic History: Reports: None Immunologic History: Reports: None Oncologic (Cancer) History: Reports: None Dermatologic History: Reports: None - Infectious Disease History Infectious Disease History: Reports: None - Past Surgical History HEENT Surgical History: Reports: Oral Surgery, Tonsillectomy, Other (See Below) Other HEENT Surgeries/Procedures: wisdome teeth removed Cardiovascular Surgical History: Reports: None Respiratory Surgical History: Reports: None GI Surgical History: Reports: None Female Surgical History: Reports: None Endocrine Surgical History: Reports: None Neurological Surgical History: Reports: None Musculoskeletal Surgical History: Reports: None Oncologic Surgical History: Reports: None Dermatological Surgical History: Reports: None Social & Family History - Family History Family Medical History: Noncontributory - Tobacco Use Smoking Status *Q: Never Smoker Second Hand Smoke Exposure: No - Caffeine Use Caffeine Use: Reports: None - Recreational Drug Use Recreational Drug Use: No - Living Situation & Occupation Living situation: Reports: Single Occupation: Unemployed H&P Review of Systems - Review of Systems: Review Of Systems: See Below General: Reports: Fever (low grade on admission), Other (patient is tired as did not sleep much at all in ED last night.) HEENT: Denies: Headaches Pulmonary: Denies: Shortness of Breath, Pleuritic Chest Pain, Cough Cardiovascular: Denies: Chest Pain, Palpitations, Dyspnea on Exertion (has not been exerting for 6 -7 days) Gastrointestinal: Reports: Abdominal Pain (Rt lower quad/adnexal discomfort), Decreased Appetite. Denies: Black Stool, Bloody Stool, Constipation, Diarrhea, Hematemesis, Hematochezia, Melena, Nausea Genitourinary: Reports: Other (rt adnexal/RLQ discomfort) Musculoskeletal: Reports: Leg Pain (requiring dilaudid every hour). Denies: Back Pain Psychiatric: Reports: No Symptoms Neurological: Reports: No Symptoms Exam - Exam Exam: See Below - Vital Signs Vital Signs: Last Vital Signs Temp 97.5 F 04/13/17 07:25 Pulse 83 04/13/17 07:27 Resp 18 04/13/17 07:25 BP 101/59 L 04/13/17 07:27 Pulse Ox 97 04/13/17 07:27 Weight: 148 lb 6.4 oz - Exam Quality Assessment: DVT Prophylaxis (Eliquis-- took one tab in ED this morning. ) General: Alert, Oriented, Cooperative HEENT: Conjunctiva Clear, EOMI, Hearing Intact, Pupils Equal Neck: Supple Lungs: Clear to Auscultation, Normal Respiratory Effort Cardiovascular: Regular Rate, Regular Rhythm, Normal S1, Normal S2 GI/Abdominal Exam: Normal Bowel Sounds, Soft, Non-Tender (Female) Exam: Deferred Rectal (Female) Exam: Deferred Back Exam: Normal Inspection Extremities: Other (swelling to right leg, calf and thigh) Peripheral Pulses: 1+: Dorsalis Pedis (R), 2+: Dorsalis Pedis (L) Skin: Warm, Dry, Intact Neurological: Cranial Nerves Intact Neuro Extensive - Mental Status: Alert, Oriented x3, Normal Mood/Affect (sleepy) , Normal Cognition (answers all ?'s appropriately) Psychiatric: Alert, Normal Affect, Normal Mood - Patient Data Result Diagrams: 04/12/17 20:07 04/12/17 20:07 *Q Meaningful Use (ADM) - VTE *Q VTE Criteria *Q: - Stroke *Q Stroke Criteria *Q: - AMI *Q AMI Criteria *Q: - Problem List (1) Pulmonary embolism SNOMED Code(s): 79143151 ICD Code: I26.99 - OTHER PULMONARY EMBOLISM WITHOUT ACUTE COR PULMONALE Status: Acute Priority: High Current Visit: Yes Qualifiers: Pulmonary embolism type: other Chronicity: acute Acute cor pulmonale presence: without acute cor pulmonale Qualified Code(s): I26.99 - Other pulmonary embolism without acute cor pulmonale (2) Right leg DVT SNOMED Code(s): 823553424 ICD Code: I82.401 - ACUTE EMBOLISM AND THOMBOS UNSP DEEP VEINS OF R LOW EXTREM Status: Acute Priority: High Current Visit: Yes Qualifiers: Affected thrombotic vein of extremity: femoral Chronicity: acute Qualified Code(s): I82.411 - Acute embolism and thrombosis of right femoral vein Problem List Initiated/Reviewed/Updated: Yes Orders Last 24hrs: Active Orders 24 hr Category Date Time Status Height and Weight [RC] DAILY Care 04/13/17 10:31 Active Intake and Output [RC] QSHIFT Care 04/13/17 10:32 Active Oxygen Therapy [RC] PRN Care 04/13/17 10:31 Active RT Aerosol Therapy [RC] ASDIRECTED Care 04/13/17 10:35 Active Up With Assistance [RC] ASDIRECTED Care 04/13/17 10:31 Active Up ad [place] [RC] ASDIRECTED Care 04/13/17 10:31 Active VTE/DVT Education [RC] PER UNIT ROUTINE Care 04/13/17 10:31 Active Vital Signs [RC] Q4H Care 04/13/17 10:31 Active Clear Liquid Diet [DIET] Diet 04/13/17 Lunch Active BASIC METABOLIC PANEL,BMP [CHEM] AM Lab 04/14/17 05:11 Ordered CBC WITH AUTO DIFF [HEME] AM Lab 04/14/17 05:11 Ordered MAGNESIUM [CHEM] AM Lab 04/14/17 05:11 Ordered Acetaminophen/oxyCODONE [Percocet 325-5 MG] Med 04/13/17 10:31 Active 1 tab PO Q4H PRN Albuterol [Proventil Neb Soln] Med 04/13/17 10:31 Active 2.5 mg NEB Q2H PRN Apixaban [Eliquis] Med 04/13/17 21:00 Active 10 mg PO BID Docusate Sodium [Colace] Med 04/13/17 10:31 Active 100 mg PO BID PRN Magnesium Hydroxide [Milk of Magnesia] Med 04/13/17 10:31 Active 30 ml PO Q12H PRN Ondansetron [Zofran ODT] Med 04/13/17 10:31 Active 4 mg PO Q4H PRN Ondansetron [Zofran] Med 04/13/17 10:31 Active 4 mg IV Q4H PRN Temazepam [Restoril] Med 04/13/17 10:31 Active 7.5 mg PO BEDTIME PRN Code Status [Resuscitation Status] Routine Resus Stat 04/13/17 08:19 Ordered Medication Orders Albuterol (Proventil Neb Soln) 2.5 mg NEB Q2H PRN PRN Reason: Shortness Of Breath/wheezing Apixaban (Eliquis) 10 mg PO BID SUKHI Docusate Sodium (Colace) 100 mg PO BID PRN PRN Reason: Constipation Hydromorphone HCl (Dilaudid) 0.5 mg IVPUSH Q1H PRN PRN Reason: Pain Last Admin: 04/13/17 09:17 Dose: 0.5 mg Admin: 04/13/17 06:48 Dose: 0.5 mg Admin: 04/13/17 05:40 Dose: 0.5 mg Admin: 04/13/17 04:30 Dose: 0.5 mg Admin: 04/13/17 03:36 Dose: 0.5 mg Admin: 04/13/17 02:29 Dose: 0.5 mg Admin: 04/13/17 01:23 Dose: 0.5 mg Sodium Chloride (Normal Saline) 1,000 mls @ 125 mls/hr IV ASDIRECTED SUKHI Last Admin: 04/13/17 04:21 Dose: 125 mls/hr Infusion: 04/13/17 04:02 Dose: 125 mls/hr Admin: 04/12/17 20:02 Dose: 125 mls/hr Magnesium Hydroxide (Milk Of Magnesia) 30 ml PO Q12H PRN PRN Reason: Constipation Ondansetron HCl (Zofran Odt) 4 mg PO Q4H PRN PRN Reason: nausea, able to take PO Ondansetron HCl (Zofran) 4 mg IV Q4H PRN PRN Reason: Nausea/Vomiting Oxycodone/Acetaminophen (Percocet 325-5 Mg) 1 tab PO Q4H PRN PRN Reason: Pain (moderate 4-6) Sodium Chloride (Saline Flush) 10 ml FLUSH ASDIRECTED PRN PRN Reason: Keep Vein Open Last Admin: 04/12/17 20:06 Dose: 10 ml Sodium Chloride (Saline Flush) 10 ml FLUSH ONETIME PRN PRN Reason: IV FLUSH Last Admin: 04/12/17 20:26 Dose: 10 ml Temazepam (Restoril) 7.5 mg PO BEDTIME PRN PRN Reason: Sleep Assessment/Plan Comment:: I/P: Bilateral Pulmonary Emboli -Eliquis 10mg PO BID -Supplemental oxygen PRN sats >92% -RT/IS, albuterol nebs PRN -Consider repeat CXR in 1-2 days Acute diffuse rt DVT of popliteal, common femoral veins- worsening of pain and swelling with intermittent paresthesias -ED Physician has spoken with Interventional Radiologist, Dr. Martins who felt intervention is indicated and will be helpful per ED reports. -Awaiting open bed in ICU for transfer to [facility] for above noted tx. -Eliquis BID as above -Pain medications PRN -Will recommend hypercoagulable workup with hematology after completion of therapy for DVT/PE. -DVT/VTE risk factors: prior OCP use - has been discontinued 2 days ago, strong family hx in mother and grandmother of DVT Chronic conditions: None Other: GI prophylax Clear liquid diet for now- in case transfer with IR procedure later today Daily labs Plan for transfer to [place] when bed available. Patient is Full Code status. No PCP established--recommend establish care with PCP after discharge.
--- NOTE | 2017-04-13 11:36 | PCM.SN ---
- Free Text/Narrative Note: Call placed to [facility]. Reviewed case, they are aware of patient and were instructed to call Dr. Vargas when ICU bed was available. Currently no beds open as of yet. They were going to talk with new Director Multimedia on this morning, Dr. Chamorro, update him and get back to me with further information.
[2017-04-13] MEDS ORDERED: Sodium Chloride 0.9% 500 ML IV ONE (11:52)
[2017-04-13 12:41] VITALS: BP 96/48
--- NOTE | 2017-04-13 13:04 | PCM.SN ---
- Free Text/Narrative Note: Patient seen again this afternoon. Still with c/o leg pain, almost intolerable at time. Patient and nursing report when patient is up to BR leg becomes numb and discolored "purplish", takes approximately 10 minutes or so "sometimes longer" for the numbness and discoloration to resolve. she continues to have pain into her abdomen also, worse on the rt side. She denies SOB, palpitations, dizziness or cough. Patient was hypotensive with b/p 78/40's- asymptomatic. Fluid bolus was given with improvements of b/p's to 90's/50's. Discuss situation with mother again. Waiting electrical automation engineer back from [facility] for further information re: transfer hopefully later today.
--- NOTE | 2017-04-13 13:41 | PCM.DCSUM1 ---
Discharge Summary - Hospital Course Free Text/Narrative:: Soco is a pleasant 21yo female admitted to medical surgical floor for right LE DVT and now new bilateral PE's. At time of my visit she is resting comfortably, sleeping in bed. She has received dilaudid for pain to her right leg per nursing. States leg pain is still present. VSS on RA at current time. She was initially seen in the ED on 04/11/17, 2 days ago with right leg, thigh and right adnexal pain s/p fall down steps at home a few days prior, 04/07. She had seen her chiropractor who did some massage therapy to her right leg and an adjustment. Since that time her right leg has become more swollen and painful, specifically to medial thigh. D-dimer done on 04/11/17 was elevated at 11.93. Venous doppler was obtained showing acute DVT, incompletely occluding at that time of the right common femoral through popliteal veins. Left common femoral vein was patent. She also underwent CT of the abdomen and pelvis due to adnexal pain and discomfort with findings as follows per Radiologist report: :" Diffuse clot within the right common femoral, external iliac and common iliac vein. These veins appear distended with no evidence of other etiology for obstruction. This clot puts the patient at risk for pulmonary embolism." Anticoagulant options were reviewed with her and her mother, they elected eliquis. She was started on Eliquis 10mg BID. She was also offered hospitalization for close monitoring but they deferred at that time. She returns today with worsening of pain and swelling to her right leg/thigh. She is ambulating with crutches and using hydrocodone every 6 hours for the pain. She has noted intermittent numbness to her right foot the past day or so. She denies cough, SOB or dizziness. ED workup is with labs showing CBC of 10.21, H&H of 12.1 and 37.0, Plt normal at 284. CMP essentially unremarkable aside from AG of 16.0 and low AST of 14, low albumin of 2.9. BUN/Creat WNL at [address] angiogram of the chest was performed showing bilateral pulmonary emboli. Dr Gallardo, ED Physician did call [facility] in [place], talked with interventional radiologist Dr. Martins who thought he would be able to assist with the DVT with intervention, however there were no ICU beds available where she would need to be placed after intervention. She was watched in ED overnight , medicated for pain with 4 doses of dilaudid and hydrated with IVF. Dr. Gallardo attempted call again for transfer but again no beds available. Decision is made to admit her here as inpatient for monitoring until beds open in [place] for transfer and IR treatment for this extensive DVT. VTE risk factors: family history in mother and grandmother for DVT's (no coagulopathy workup has been done on either) and OCP use prior to 2 days ago. She does not smoke, not obese, no hx of cancer or - HCG was negative on initial ED visit. Patient is Full Code status. She does not have PCP. - Discharge Data Discharge Date: 04/13/17 Discharge Disposition: DC/Tfer to Acute Hospital 02 Condition: Fair - Discharge Diagnosis/Problem(s) (1) Pulmonary embolism SNOMED Code(s): 29888202 ICD Code: I26.99 - OTHER PULMONARY EMBOLISM WITHOUT ACUTE COR PULMONALE Status: Acute Priority: High Current Visit: Yes Qualifiers: Pulmonary embolism type: other Chronicity: acute Acute cor pulmonale presence: without acute cor pulmonale Qualified Code(s): I26.99 - Other pulmonary embolism without acute cor pulmonale (2) Right leg DVT SNOMED Code(s): 844723539 ICD Code: I82.401 - ACUTE EMBOLISM AND THOMBOS UNSP DEEP VEINS OF R LOW EXTREM Status: Acute Priority: High Current Visit: Yes Qualifiers: Affected thrombotic vein of extremity: femoral Chronicity: acute Qualified Code(s): I82.411 - Acute embolism and thrombosis of right femoral vein - Patient Summary/Data Operative Procedure(s) Performed: None Complications: None--worsening pain from rt LE DVT Consults: None Labs Pending at D/C: None Recommended Follow-up Testing/Procedures: Establish care with local PCP after discharge from [facility] Planned Operative Procedure(s) after DC: Interventional Radiology procedure at higher level of care is expected to occur Hospital Course: See above under Admission: Patient was medicated with dilaudid PRN for rt leg pain, IVF given with bolus for hypotension with response. [facility] contacted on two occasions for bed availability today with acceptance achieved. Dr. Castaneda is accepting Hospitalist with Dr. Martins as IR that has been contacted through the ED and all are in agreement to accept the patient for higher level of care for thrombolysis procedure which is expected to occur tomorrow per [facility]. Patient will be transferred via ambulance to [facility], Dr. Castaneda accepting Physician - Patient Instructions Diet: NPO Activity: Bedrest, Elevate Extremity Driving: Do Not Drive Showering/Bathing: May Shower Notify Provider of: Fever, Increased Pain, Nausea and/or Vomiting - Discharge Plan Home Medications: Home Meds Hydrocodone/Acetaminophen [[place] 5-325] 1 each PO QID PRN #15 tablet 04/11/17 [ Rx] Apixaban [Eliquis] 10 tab PO BID 04/12/17 [History] Patient Handouts: Pulmonary Embolism, Venous Thromboembolism, Deep Vein Thrombosis Forms: ED Department Discharge Referrals: [facility] Nena Amaya [Primary Care Provider] - - Discharge Summary/Plan Comment DC Time >30 min.: Yes (60 min) - General Info Date of Service: 04/13/17 Admission Dx/Problem (Free Text: PE/DVT Functional Status: Reports: Ambulating (with increased pain- only amb to BR), Urinating, Incentive Spirometry. Denies: Tolerating Diet - Review of Systems General: Reports: Fever, Weakness HEENT: Reports: No Symptoms Pulmonary: Reports: No Symptoms. Denies: Shortness of Breath, Pleuritic Chest Pain, Cough Cardiovascular: Reports: No Symptoms. Denies: Chest Pain, Palpitations, Dyspnea on Exertion, Lightheadedness Gastrointestinal: Reports: Abdominal Pain (rt lower), Nausea (intermittent). Denies: Vomiting Genitourinary: Reports: No Symptoms Musculoskeletal: Reports: Leg Pain Neurological: Reports: No Symptoms Psychiatric: Reports: No Symptoms - Patient Data Vitals - Most Recent: Last Vital Signs Temp 97.9 F 04/13/17 11:28 Pulse 76 04/13/17 11:28 Resp 18 04/13/17 11:28 BP 96/48 L 04/13/17 12:41 Pulse Ox 100 04/13/17 11:28 Weight - Most Recent: 148 lb 6.4 oz I&O - Last 24 hours: Intake & Output 04/12/17 04/13/17 04/13/17 22:59 06:59 14:59 Intake Total 560 Balance 560 Med Orders - Current: Current Medications Albuterol (Proventil Neb Soln) 2.5 mg NEB Q2H PRN PRN Reason: Shortness Of Breath/wheezing Apixaban (Eliquis) 10 mg PO BID SUKHI Docusate Sodium (Colace) 100 mg PO BID PRN PRN Reason: Constipation Hydromorphone HCl (Dilaudid) 0.5 mg IVPUSH Q1H PRN PRN Reason: Pain Last Admin: 04/13/17 09:17 Dose: 0.5 mg Sodium Chloride (Normal Saline) 1,000 mls @ 125 mls/hr IV ASDIRECTED SUKHI Last Admin: 04/13/17 11:59 Dose: 125 mls/hr Magnesium Hydroxide (Milk Of Magnesia) 30 ml PO Q12H PRN PRN Reason: Constipation Ondansetron HCl (Zofran Odt) 4 mg PO Q4H PRN PRN Reason: nausea, able to take PO Ondansetron HCl (Zofran) 4 mg IV Q4H PRN PRN Reason: Nausea/Vomiting Last Admin: 04/13/17 11:59 Dose: 4 mg Oxycodone/Acetaminophen (Percocet 325-5 Mg) 1 tab PO Q4H PRN PRN Reason: Pain (moderate 4-6) Last Admin: 04/13/17 12:48 Dose: 1 tab Sodium Chloride (Saline Flush) 10 ml FLUSH ASDIRECTED PRN PRN Reason: Keep Vein Open Last Admin: 04/12/17 20:06 Dose: 10 ml Sodium Chloride (Saline Flush) 10 ml FLUSH ONETIME PRN PRN Reason: IV FLUSH Last Admin: 04/12/17 20:26 Dose: 10 ml Temazepam (Restoril) 7.5 mg PO BEDTIME PRN PRN Reason: Sleep Discontinued Medications Hydromorphone HCl (Dilaudid) 1 mg IVPUSH ONETIME ONE Stop: 04/12/17 19:35 Last Admin: 04/12/17 20:03 Dose: 1 mg Hydromorphone HCl (Dilaudid) 1 mg IVPUSH ONETIME ONE Stop: 04/12/17 21:08 Last Admin: 04/12/17 21:12 Dose: 1 mg Hydromorphone HCl (Dilaudid) 0.5 mg IVPUSH ONETIME ONE Stop: 04/12/17 22:07 Last Admin: 04/12/17 22:11 Dose: 0.5 mg Sodium Chloride (Normal Saline) 100 mls @ 75 mls/hr IV ASDIRECTED SUKHI Last Admin: 04/12/17 20:26 Dose: 75 mls/hr Sodium Chloride (Normal Saline) 500 mls @ 999 mls/hr IV .BOLUS ONE Stop: 04/13/17 12:22 Iopamidol (Isovue-370 (76%)) 100 ml IVPUSH ONETIME ONE Stop: 04/12/17 19:58 Last Admin: 04/12/17 20:26 Dose: 60 ml Ketorolac Tromethamine (Toradol) 30 mg IVPUSH ONETIME ONE Stop: 04/13/17 05:35 Last Admin: 04/13/17 05:40 Dose: 30 mg - Exam Quality Assessment: Reports: DVT Prophylaxis General: Reports: Alert, Oriented, Cooperative, No Acute Distress HEENT: Reports: Pupils Equal, EOMI, Mucous Membr. Moist/[place] Neck: Reports: Supple Lungs: Reports: Clear to Auscultation, Normal Respiratory Effort Cardiovascular: Reports: Regular Rate, Regular Rhythm, No Murmurs, Irregular Rhythm GI/Abdominal Exam: Normal Bowel Sounds, Soft, Tender (right lower abdomen). No : Distended, Guarding, Rigid, Rebound (Female) Exam: Deferred Rectal (Female) Exam: Deferred Extremities: Other (swelling to right thigh and calf, pain with palp to entire right thigh; + idris's to right side. DP/PT 2+ and = bilat at rest.) Neurological: Reports: No New Focal Deficit Psy/Mental Status: Reports: Alert, Normal Affect, Normal Mood *Q Meaningful Use (DIS) - VTE *Q VTE Criteria *Q: - Stroke *Q Stroke Criteria *Q: - AMI *Q AMI Criteria *Q:
[2017-04-13] MEDS ORDERED: Apixaban 5 MG Tab PO SCH (21:00)
== END 2017-04-13 14:37 | DRG 197 ==
LOC: JD.ED 19:11 → JD.MS 04-13 05:28
PROVIDERS: ADMIT Internal Medicine; ATTEND Internal Medicine
DX: I82.411 Acute embolism and thrombosis of right femoral vein (principal); I26.99 Other pulmonary embolism without acute cor pulmonale; Z79.01 Long term (current) use of anticoagulants
CPT/HCPCS: 36415; 71275; 71275-26; 80053; 85025; 93005; 96361; 96374; 96376; 99285; 99285-25; A9270-GY; J1170; J1885; J2405; J7030; J7040; J7050; Q9967

== ENCOUNTER 2017-08-31 22:29 | Emergency (ER) | payer BC ==
[2017-08-31] MEDS ORDERED: Sodium Chloride 0.9% 10 ML Syringe FLUSH PRN (23:47)
[2017-08-31] MEDS ORDERED: HYDROmorphone 0.5 MG/0.5 ML SYRINGE IVPUSH ONE (23:48)
[2017-08-31] MEDS ORDERED: Metoclopramide 10 MG/2 ML SDV IVPUSH ONE (23:48)
--- NOTE | 2017-08-31 23:55 | EDM.PDOC ---
ED HPI GENERAL MEDICAL PROBLEM - General Chief Complaint: Upper Extremity Injury/Pain Stated Complaint: NUMBNESS TO LEFT SIDE OF BODY Time Seen by Provider: 08/31/17 23:40 Source of Information: Reports: Patient History Limitations: Reports: No Limitations - History of Present Illness INITIAL COMMENTS - FREE TEXT/NARRATIVE: 22-year-old female attends the ED complaining of left upper extremity numbness tingling burning lancinating pain. She states she woke up yesterday morning with pain in her medial left elbow. Since that time the left upper extremity has become more numb tingly clumsy with pain rating up into the left armpit and neck. Denies any falls or injuries to her cervical spine. She states it feels like her hand is asleep in all of the dermatomes of the median nerve ulnar nerve and radial nerve. She can make a fist but it is weaker than normal. She states she has dropped things today. Pain is now increasing in intensity particularly from the elbow up into the armpit. This is the reason she came to the ED. 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 She spent a week in [facility] having the clot removed due to phlebitis or blood ran involving her right lower extremity. She remains on aliquots at this time. The DVT was felt to be precipitated by an underlying intensity clotting aggravated by starting control pill. She admits that she has not missed any Eliquis tablets. She had some concerns that her current left upper chin and pain was due to a blood clot. Onset: Today Onset Date: 08/31/17 Onset Time: 07:00 (Initial pain was felt medial aspect of elbow and radiates somewhat up into the left axilla.) Duration: Hour(s):, Getting Worse Location: Reports: Upper Extremity, Left (ntire upper extremity) Quality: Reports: Ache, Burning, Other Severity: Severe (Pain is sharp stabbing lancinating shooting characteristic of neurogenic pain) Improves with: Reports: None ( 9 out of 10.) Worsens with: Reports: None Context: Reports: Other (Miriam Nice occurrence. No known injuries or trauma to the arm brachial plexus or neck.). Denies: Activity, Exercise, Lifting, Sick Contact, Trauma Associated Symptoms: Denies: Confusion, Chest Pain, Cough, cough w sputum, Diaphoresis, Fever/Chills, Headaches, Loss of Appetite, Malaise, Nausea/Vomiting , Rash, Seizure, Shortness of Breath, Syncope Treatments WELL TESTER: Reports: Acetaminophen Left Arm Pain Score (Numeric/FACES): 10 - Related Data Allergies Allergy/AdvReac Type Severity Reaction Status Date / Time No Known Allergies Allergy Verified 04/13/17 06:26 Home Meds: Home Meds Apixaban [Eliquis] 5 tab PO BID 04/12/17 [History] carBAMazepine [Tegretol] 100 mg PO BID #24 ml 09/01/17 [Rx] oxyCODONE HCl/Acetaminophen [Percocet 5-325 mg Tablet] 1 - 2 each PO Q4H PRN # 20 tablet 09/01/17 [Rx] predniSONE [Deltasone] 20 mg PO ASDIRECTED #24 tablet 09/01/17 [Rx] Past Medical History HEENT History: Reports: None Cardiovascular History: Reports: Blood Clots/VTE/DVT Respiratory History: Reports: None Gastrointestinal History: Reports: GERD Genitourinary History: Reports: None 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) Other OB/BYN History: IUD-Mirena Musculoskeletal History: Reports: None Neurological History: Reports: None Psychiatric History: Reports: None Endocrine/Metabolic History: Reports: None Hematologic History: Reports: None Immunologic History: Reports: None Oncologic (Cancer) History: Reports: None Dermatologic History: Reports: None - Infectious Disease History Infectious Disease History: Reports: None - Past Surgical History HEENT Surgical History: Reports: Oral Surgery, Tonsillectomy, Other (See Below) Other HEENT Surgeries/Procedures: wisdome teeth removed Respiratory Surgical History: Reports: None Social & Family History - Family History Family Medical History: Noncontributory - Tobacco Use Smoking Status *Q: Never Smoker Second Hand Smoke Exposure: No - Caffeine Use Caffeine Use: Reports: Coffee - Recreational Drug Use Recreational Drug Use: No - Living Situation & Occupation Living situation: Reports: Single Occupation: Unemployed Review of Systems - Review of Systems Review Of Systems: See Below Constitutional: Reports: Weakness. Denies: Chills, Diaphoresis, Other Eyes: Denies: No Symptoms, Blindness, Blurred Vision (Left upper extremity), Drainage, Decreased Acuity, Foreign Body Sensation, Inflammation, Pain, Photophobia, Tunnel Vision, Vision Change, Contact Lenses, Glasses Ears: Reports: No Symptoms Nose: Reports: No Symptoms Mouth/Throat: Reports: No Symptoms Respiratory: Reports: No Symptoms Cardiovascular: Reports: No Symptoms GI/Abdominal: Reports: Decreased Appetite Genitourinary: Reports: No Symptoms Musculoskeletal: Reports: Neck Pain, Shoulder Pain, Arm Pain (Left neck and shoulder pain and left arm pain) Skin: Reports: Other (Skin feels numb and tingly left extremity) Neurological: Reports: Numbness, Paresthesia, Tingling (Left upper extremity from shoulder to fingertips), Other (Burning shooting lancinating pain.) Psychiatric: Reports: No Symptoms ED EXAM, GENERAL - Physical Exam Exam: See Below Exam Limited By: No Limitations General Appearance: Alert, WD/WN, Moderate Distress Eye Exam: Bilateral Eye: Normal Inspection Head: Atraumatic, Normocephalic Neck: Normal Inspection, Supple, Other (Pain seems to be worsened by extending her neck. Axial traction applied to the neck in all positions seem to cause radiculopathy into the left upper extremity. Not sure the results are reliable.) Respiratory/Chest: No Respiratory Distress, Lungs Clear, Normal Breath Sounds, No Accessory Muscle Use, Chest Non-Tender, Respiratory Distress Cardiovascular: Normal Peripheral Pulses, Regular Rate, Rhythm (Good strong ulnar and radial pulses in the left wrist.), No Edema, No Gallop, No Murmur, No Rub Peripheral Pulses: 3+: Radial (L), Radial (R) Extremities: Other (Palpation of the extremities shows no edema swelling or localized areas of tenderness. There is no tendinitis in the distribution of the button deltoid insertion site etc.) Neurological: Alert, Normal Cognition, Normal Reflexes, Sensory/Motor Deficit ( Clinically has decreased sensation in the ditch patient of the radial the ulnar and the median nerve to her left hand. She seemed to have weakness of the abduction and abduction of her fingers. Weakness of transformation specialist strength. She was able to oppose all of the fingers with her thumb. She appears to have some weakness of the biceps and triceps musculature on the left side as well. Reflexes however were intact and equal to the other side at 2+ and symmetrical both at the brachioradialis triceps and biceps.). No: No Motor/Sensory Deficits, Inattentive, Confused, Disoriented, Slow to Respond, Unresponsive, Memory Loss Remote Events, Memory Loss Recent Events Psychiatric: Normal Affect, Normal Mood Skin Exam: Warm, Dry, Intact, Normal Color, No Rash. No: Zoster-Like Rash (No shingles rash identified) Course - Vital Signs Last Recorded V/S: Last Vital Signs Temp 36.9 C 08/31/17 22:39 Pulse 87 09/01/17 00:53 Resp 16 09/01/17 00:53 BP 120/77 09/01/17 00:53 Pulse Ox 100 09/01/17 00:53 - Orders/Labs/Meds Orders: Active Orders 24 hr Category Date Time Status Peripheral IV Care [RC] . DIRECTED Care 08/31/17 23:47 Active Cervical Spine wo Cont [CT] Stat Exams 08/31/17 23:48 Taken Peripheral IV Insertion Adult [OM.PC] Stat Oth 08/31/17 23:47 Ordered Meds: Medications Discontinued Medications Generic Name Dose Route Start Last Admin Trade Name Freq PRN Reason Stop Dose Admin Hydromorphone HCl 1 mg 08/31/17 23:48 09/01/17 00:00 Dilaudid IVPUSH 08/31/17 23:49 1 mg ONETIME ONE Administration Methylprednisolone Sodium Succinate 125 mg 09/01/17 00:12 09/01/17 00:29 Solu-Medrol IVPUSH 09/01/17 00:13 125 mg ONETIME ONE Administration Metoclopramide HCl 5 mg 08/31/17 23:48 09/01/17 00:00 Reglan IVPUSH 08/31/17 23:49 5 mg ONETIME ONE Administration Sodium Chloride 10 ml 08/31/17 23:47 09/01/17 00:02 Saline Flush FLUSH 10 ml ASDIRECTED PRN Administration Keep Vein Open - Radiology Interpretation Free Text/Narrative:: 22-year-old female process the ED with his left upper extremity pain with numbness tingling and sharp lancinating shooting pain suggestive of neurogenic origin. She complains of symptoms started in her left neck and radiate down her left upper extremity. Pain started yesterday morning and her medial left elbow and seemed to progress as the day went on. She tends the ED because of increased pain and inability to sleep. States the pain is currently 9 out of 10. The hand feels numb and tingly. She feels it is clumsy and weak. On assessment her reflexes are still intact in the left upper extremity good pulses. No evidence of DVT or axillary vein thrombosis. No axillary adenopathy. Her cervical spine by axial traction suggested possible herniated disc in the neck but results are somewhat unreliable as pain seemed to be present even on compression of disc relief from the affected side. Plan CT cervical spine to be done. She'll be given intravenous Dilaudid 1 mg IV with Reglan 5 mg IV for pain relief and Solu-Medrol 125 mg IV. Clinically I suspect she has a brachial plexus neuritis. CT cervical spine will be done to rule out thoracic outlet syndrome with a cervical rib. - Re-Assessments/Exams Free Text/Narrative Re-Assessment/Exam: 09/01/17 00:31 CT cervical spine appears to be within normal limits. There is no obvious degenerative disc disease or nerve root impingement at any of the foramina. There are also no cervical ribs identified. 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 I'm going to treat her with steroids- Deltasone 20 mg twice a day for 10 days then 1 tablet in morning for another 4 days. Percocet tabs --5/3/25 milligrams strength one to 2 every 4-6 hours needed for pain relief. Tegretol 100 mg twice a day for the next 10-12 days. He cannot take anti-inflammatories as she is on Eliquis. Advise follow-up with her primary care physician in the next couple of days. This she is to keep an eye on her upper extremity for the development of any shingles like rash. If she does not improve over the next 5 days then neurology consultation is advised. Departure - Departure Time of Disposition: 00:37 Disposition: Home, Self-Care 01 Condition: Fair Clinical Impression: Brachial plexus neuralgia Upper extremity pain, diffuse Qualifiers: Laterality: left Qualified Code(s): M79.602 - Pain in left arm - Discharge Information Prescriptions: carBAMazepine [Tegretol] 100 mg PO BID #24 ml oxyCODONE HCl/Acetaminophen [Percocet 5-325 mg Tablet] 1 - 2 each PO Q4H PRN # 20 tablet PRN Reason: pain relief. predniSONE [Deltasone] 20 mg PO ASDIRECTED #24 tablet Instructions: Neuropathic Pain Referrals: Carolynn Loaiza MD [Primary Care Provider] - Forms: ED Department Discharge, ED Return to Work/School Form Additional Instructions: Evaluation the emergency room today in regards to 6 severe pain in the left upper extremity that developed over the last 12-24 hours. Pain started in the elbow and now radiates up towards the armpit and neck and also the hand and forearm feel numb and tingly. And also has lost some of its strength and function. Flexes are still present. The pain is that of inflammation of the brachial plexus which is the nerves in the armpit that supply the upper extremity. This involves the ulnar nerve, the median nerve, and the radial nerve. All 3 nerves appear to be affected on examination. CT scan of your neck was performed to rule out any obvious disc disease. The CT is normal. Treatment is therefore to watch out for a rash developing in the left upper extremity and neck area with that would be compatible with shingles development. Often pain like this can start for for 5 days before the rash shows up. If the rash recurs you need to attend medical care once again. As antiviral medications are required. In the meantime he will be treated with medications to take inflammation and pain away. As continuing Aleve 2 tablets every 8 hours to relieve pain and inflammation. Percocet tablets 5/3/25 milligrams strength one or 2 every 4-6 hours needed for pain relief. No acute cannot operate a motor vehicle or any other machinery while taking this pain medication. Tegretol medication 100 mg in the morning and at bedtime to help with nerve pain relief. Also prednisone or Deltasone 20 mg twice daily with breakfast and supper for 10 days and then once in the morning only for another 4 days and then off of medication. Suggest follow-up with your personal care physician either tomorrow or first thing Monday morning. Note given to excuse her from the work place for the next 14 days as this inflammation is likely to take several days or weeks to settle down. Likely referral to neurologist is going to be required and therefore follow-up with her personal care physician in this regard is advised. - My Orders Last 24 Hours: My Active Orders 08/31/17 23:47 Peripheral IV Care [RC] . DIRECTED Peripheral IV Insertion Adult [OM.PC] Stat 08/31/17 23:48 Cervical Spine wo Cont [CT] Stat - Assessment/Plan Last 24 Hours: My Active Orders 08/31/17 23:47 Peripheral IV Care [RC] . DIRECTED Peripheral IV Insertion Adult [OM.PC] Stat 08/31/17 23:48 Cervical Spine wo Cont [CT] Stat
[2017-09-01] MEDS ORDERED: methylPREDNISolone Sodium Succinate 125 MG/2 ML SDV IVPUSH ONE (00:12)
[2017-09-01 00:56] VITALS: BP 120/77
--- NOTE | 2017-09-01 11:59 | CT ---
CT cervical spine Technique: Multiple axial sections were obtained from above C1 inferiorly to the bottom of T3. Reconstructed sagittal and coronal images were reviewed. Comparison: No prior cervical spine imaging. Findings: Kyphosis is noted on the reconstructed sagittal images. Vertebral body heights and disc spaces are maintained. No fracture is seen. No abnormal subluxation is identified. Impression: 1. Kyphosis. This is most likely due to position. 2. Nothing acute is appreciated on CT study of the cervical spine. Diagnostic code #2 I agree with preliminary report from [facility], finalized at 09/01/17, 1:39 AM Central Time
== END 2017-09-01 00:53 | disposition home or self-care (01) ==
LOC: JD.ED 22:29
DX: G58.8 Other specified mononeuropathies (principal); M79.602 Pain in left arm; Z79.899 Other long term (current) drug therapy
CPT/HCPCS: 72125; 96374; 96375; 99284; J1170; J2765; J2930; J7050

== ENCOUNTER 2019-07-11 21:53 | Emergency (ER) | payer BC ==
--- NOTE | 2019-07-11 22:16 | EDM.PDOC ---
ED HPI GENERAL MEDICAL PROBLEM - General Chief Complaint: Cardiovascular Problem Stated Complaint: HEART RACING/CHEST PAIN Time Seen by Provider: 07/11/19 22:01 Source of Information: Reports: Patient History Limitations: Reports: No Limitations - History of Present Illness INITIAL COMMENTS - FREE TEXT/NARRATIVE: The patient had onset of central chest pain about 30 minutes ago. Associated with shortness of breath. Also noted a racing heart. No sweating. No fever. No other symptom of acute medical illness. Risk factors include history of DVT with pulmonary emboli 2 years ago. Patient stopped taking anticoagulation about a year ago. She says her physician took her off blood thinner. It is not clear what kind of medical care she has been receiving. Patient is not optimally informative. She has not taken any medication and there is been no intervention prior to arrival to the emergency room. TRIAGE NOTE -- pt presents to ER with c/o chest pain pressure and a racing heartbeat. 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 on monitoring coordinator HR [id number] sinus tach. pt denies recent illness. Upper Chest Pain Score (Numeric/FACES): 5 - Related Data Allergies Allergy/AdvReac Type Severity Reaction Status Date / Time No Known Allergies Allergy Verified 07/11/19 22:18 Home Meds: Home Meds Mag Oxide/D3/Turmeric Rt Xt [Magnesium-Vit D3-Turmeric Cap] 1 each PO DAILY #20 capsule 07/12/19 [Rx] Potassium Chloride 10 meq PO BID #14 tablet.er 07/12/19 [Rx] Past Medical History HEENT History: Reports: None Cardiovascular History: Reports: Blood Clots/VTE/DVT Respiratory History: Reports: Other (See Below) (PULMONARY EMBOLI) Gastrointestinal History: Reports: GERD Genitourinary History: Reports: None CLIPPER AND TURNER History: Reports: Other (See Below) Other CLIPPER AND TURNER History: IUD-Mirena Musculoskeletal History: Reports: None Neurological History: Reports: None Psychiatric History: Reports: None Endocrine/Metabolic History: Reports: None Hematologic History: Reports: None Immunologic History: Reports: None Oncologic (Cancer) History: Reports: None Dermatologic History: Reports: None - Infectious Disease History Infectious Disease History: Reports: None - Past Surgical History HEENT Surgical History: Reports: Oral Surgery, Tonsillectomy, Other (See Below) Other HEENT Surgeries/Procedures: wisdome teeth removed Respiratory Surgical History: Reports: None Social & Family History - Family History Family Medical History: Noncontributory - Tobacco Use Smoking Status *Q: Never Smoker - Caffeine Use Caffeine Use: Reports: None - Living Situation & Occupation Living situation: Reports: Single Occupation: Unemployed ED ROS GENERAL - Review of Systems Review Of Systems: Comprehensive ROS is negative, except as noted in HPI. ED EXAM, GENERAL - Physical Exam Exam: See Below Exam Limited By: No Limitations General Appearance: Alert, WD/WN, No Apparent Distress, Anxious Eye Exam: Bilateral Eye: EOMI, PERRL Ears: Normal External Exam Nose: Normal Inspection Throat/Mouth: Normal Inspection Head: Atraumatic, Normocephalic Neck: Normal Inspection, Supple, Non-Tender Respiratory/Chest: No Respiratory Distress, Lungs Clear, Normal Breath Sounds, No Accessory Muscle Use, Chest Non-Tender Cardiovascular: Tachycardia GI/Abdominal: Soft, Non-Tender Back Exam: Normal Inspection Extremities: Normal Inspection, Non-Tender Neurological: Alert, Oriented Psychiatric: Anxious (Distracted) Skin Exam: Warm, Dry Course - Vital Signs Last Recorded V/S: Last Vital Signs Temp 36.6 C 07/12/19 00:27 Pulse 112 H 07/12/19 00:27 Resp 20 07/12/19 00:27 BP 112/71 07/12/19 00:27 Pulse Ox 100 07/12/19 00:27 - Orders/Labs/Meds Orders: Active Orders 24 hr Category Date Time Status EKG Documentation Completion [RC] STAT Care 07/11/19 22:08 Active Oxygen Therapy, ED [RC] ASDIRECTED Care 07/11/19 22:08 Active Chest 1V Frontal [CR] Stat Exams 07/11/19 22:08 Taken Sodium Chloride 0.9% [Normal Saline] 1,000 ml Med 07/11/19 23:15 Active IV ASDIRECTED Medication Orders Sodium Chloride (Normal Saline) 1,000 mls @ 100 mls/hr IV ASDIRECTED SUKHI Last Admin: 07/11/19 23:11 Dose: 100 mls/hr Labs: Laboratory Tests 07/11/19 07/11/19 07/11/19 Range/Units 22:25 22:25 22:25 WBC 7.64 (3.98-10.04) K/mm3 RBC 5.07 (3.98-5.22) M/mm3 Hgb 15.3 D (11.2-15.7) gm/dl Hct 44.9 (34.1-44.9) % MCV 88.6 (79.4-94.8) fl MCH 30.2 (25.6-32.2) pg MCHC 34.1 (32.2-35.5) g/dl RDW Std Deviation 39.9 (36.4-46.3) fL Plt Count 367 D (182-369) K/mm3 MPV 9.3 L (9.4-12.3) fl Neutrophils % (Manual) 39 L (40-60) % Band Neutrophils % 1 (0-10) % Lymphocytes % (Manual) 53 H (20-40) % Atypical Lymphs % 3 % Monocytes % (Manual) 4 (2-10) % Eosinophils % (Manual) 0 L (0.7-5.8) % Basophils % (Manual) 0 L (0.1-1.2) Platelet Estimate Adequate RBC Morph Comment Normal PT 10.1 (9.7-12.0) SECONDS INR 0.93 APTT 23 (22-31) SECONDS D-Dimer, Quantitative 0.22 (0.19-0.50) mg/L Sodium 140 (136-145) mEq/L Potassium 3.1 L (3.5-5.1) mEq/L Chloride 102 (98-107) mEq/L Carbon Dioxide 21 (21-32) mEq/L Anion Gap 20.1 H (5-15) BUN 14 (7-18) mg/dL Creatinine 1.0 (0.55-1.02) mg/dL Est Cr Clr Drug Dosing 81.91 mL/min Estimated GFR (MDRD) > 60 (>60) mL/min BUN/Creatinine Ratio 14.0 (14-18) Glucose 116 H (74-106) mg/dL Calcium 9.2 (8.5-10.1) mg/dL Magnesium 1.7 L (1.8-2.4) mg/dl Total Bilirubin 0.6 (0.2-1.0) mg/dL AST 17 (15-37) U/L ALT 16 (14-59) U/L Alkaline Phosphatase 71 (46-116) U/L Troponin I < 0.017 (0.00-0.056) ng/mL C-Reactive Protein <0.2 (<1.0) mg/dL Total Protein 8.3 H (6.4-8.2) g/dl Albumin 4.6 (3.4-5.0) g/dl Globulin 3.7 gm/dL Albumin/Globulin Ratio 1.2 (1-2) TSH 3rd Generation 3.846 H (0.358-3.74) uIU/mL Urine Color (Yellow) Urine Appearance (Clear) Urine pH (5.0-8.0) Ur Specific [place] (1.005-1.030) Urine Protein (Negative) Urine Glucose (UA) (Negative) Urine Ketones (Negative) Urine Occult Blood (Negative) Urine Nitrite (Negative) Urine Bilirubin (Negative) Urine Urobilinogen (0.2-1.0) Ur Leukocyte Esterase (Negative) Urine HCG, Qual (NEGATIVE) Urine Opiates Screen (ZOPTXK=493) Ur Buprenorphine Scrn (CUTOFF=10) Ur Oxycodone Screen (WJW2HH=522) Urine Methadone Screen (AKLAMF=441) Ur Propoxyphene Screen (GIFONP=390) Ur Barbiturates Screen (VFCOYE=841) Ur Tricyclics Screen (SPILFX=376) Ur Phencyclidine Scrn (CUTOFF=25) Ur Amphetamine Screen (UVXXCH=678) U Methamphetamines Scrn (ZRMJRH=208) U Benzodiazepines Scrn (ASLLHK=364) U Cocaine Metab Screen (SNEYEN=081) U Marijuana (THC) Screen (CUTOFF=50) Ethyl Alcohol 0.00 (0.00) gm% 07/11/19 07/11/19 07/11/19 Range/Units 23:35 23:35 23:35 WBC (3.98-10.04) K/mm3 RBC (3.98-5.22) M/mm3 Hgb (11.2-15.7) gm/dl Hct (34.1-44.9) % MCV (79.4-94.8) fl MCH (25.6-32.2) pg MCHC (32.2-35.5) g/dl RDW Std Deviation (36.4-46.3) fL Plt Count (182-369) K/mm3 MPV (9.4-12.3) fl Neutrophils % (Manual) (40-60) % Band Neutrophils % (0-10) % Lymphocytes % (Manual) (20-40) % Atypical Lymphs % % Monocytes % (Manual) (2-10) % Eosinophils % (Manual) (0.7-5.8) % Basophils % (Manual) (0.1-1.2) Platelet Estimate RBC Morph Comment PT (9.7-12.0) SECONDS INR APTT (22-31) SECONDS D-Dimer, Quantitative (0.19-0.50) mg/L Sodium (136-145) mEq/L Potassium (3.5-5.1) mEq/L Chloride (98-107) mEq/L Carbon Dioxide (21-32) mEq/L Anion Gap (5-15) BUN (7-18) mg/dL Creatinine (0.55-1.02) mg/dL Est Cr Clr Drug Dosing mL/min Estimated GFR (MDRD) (>60) mL/min BUN/Creatinine Ratio (14-18) Glucose (74-106) mg/dL Calcium (8.5-10.1) mg/dL Magnesium (1.8-2.4) mg/dl Total Bilirubin (0.2-1.0) mg/dL AST (15-37) U/L ALT (14-59) U/L Alkaline Phosphatase (46-116) U/L Troponin I (0.00-0.056) ng/mL C-Reactive Protein (<1.0) mg/dL Total Protein (6.4-8.2) g/dl Albumin (3.4-5.0) g/dl Globulin gm/dL Albumin/Globulin Ratio (1-2) TSH 3rd Generation (0.358-3.74) uIU/mL Urine Color Yellow (Yellow) Urine Appearance Clear (Clear) Urine pH 6.5 (5.0-8.0) Ur Specific [place] 1.020 (1.005-1.030) Urine Protein Negative (Negative) Urine Glucose (UA) Negative (Negative) Urine Ketones Negative (Negative) Urine Occult Blood Negative (Negative) Urine Nitrite Negative (Negative) Urine Bilirubin Negative (Negative) Urine Urobilinogen 0.2 (0.2-1.0) Ur Leukocyte Esterase Negative (Negative) Urine HCG, Qual Negative (NEGATIVE) Urine Opiates Screen Negative (UDKVQJ=836) Ur Buprenorphine Scrn Negative (CUTOFF=10) Ur Oxycodone Screen Negative (MIP5WC=209) Urine Methadone Screen Negative (VNXXYU=225) Ur Propoxyphene Screen Negative (GJRORB=741) Ur Barbiturates Screen Negative (MVOTEH=044) Ur Tricyclics Screen Negative (LZVSVE=234) Ur Phencyclidine Scrn Negative (CUTOFF=25) Ur Amphetamine Screen Negative (YLMLQO=426) U Methamphetamines Scrn Negative (TYXAIC=513) U Benzodiazepines Scrn Negative (EWOWPH=194) U Cocaine Metab Screen Negative (FWOSLR=907) U Marijuana (THC) Screen Negative (CUTOFF=50) Ethyl Alcohol (0.00) gm% Meds: Medications Generic Name Dose Route Start Last Admin Trade Name Freq PRN Reason Stop Dose Admin Sodium Chloride 1,000 mls @ 100 mls/hr 07/11/19 23:15 07/11/19 23:11 Normal Saline IV 100 mls/hr ASDIRECTED SUKHI Administration Discontinued Medications Generic Name Dose Route Start Last Admin Trade Name Freq PRN Reason Stop Dose Admin Potassium Chloride 40 meq 07/12/19 00:19 07/12/19 00:25 Klor-Con M20 PO 07/12/19 00:20 40 meq ONETIME ONE Administration - Re-Assessments/Exams Free Text/Narrative Re-Assessment/Exam: 07/12/19 01:15 The patient received IV fluids and other supportive care and her heart rate moderated and she remained stable with an oxygen saturation about 100%. Potassium level was a bit low and supplementation has been ordered. Also magnesium can be taken care of as an outpatient. The patient says that this episode was provoked by smoking marijuana. This is undetectable and urine. It is suspected that the patient has somehow ingested an undetectable recreational substance which is provoked this. In any event she has stabilized and is good to go home. Troponin d-dimer and EKG chest x-ray are all normal or unremarkable. Departure - Departure Time of Disposition: 01:20 Disposition: Home, Self-Care 01 Clinical Impression: Atypical chest pain, Sinus tachycardia, Hypokalemia, Low magnesium level Prescriptions: Mag Oxide/D3/Turmeric Rt Xt [Magnesium-Vit D3-Turmeric Cap] 1 each PO DAILY #20 capsule Potassium Chloride 10 meq PO BID #14 tablet.er Referrals: PCP,None [Primary Care Provider] - Forms: ED Department Discharge Additional Instructions: Your potassium and magnesium levels were noted to be a bit low. Supplementation has been ordered. It is recommended that you see your primary within a week or so to have these levels rechecked. Return to ER for any concerns especially chest pain associated with shortness of breath sweating inability to mobilize. Also return for any fever or other symptom of acute medical illness. Sepsis Event Note - Focused Exam Vital Signs: Vital Signs Temp Pulse Resp BP Pulse Ox 07/12/19 00:27 36.6 C 112 H 20 112/71 100 07/11/19 23:40 113 H 20 115/81 100 07/11/19 22:53 121 H 20 114/77 100 07/11/19 22:05 36.1 C 150 H 16 139/96 H 96 Date Exam was Performed: 07/12/19 Time Exam was Performed: 01:15 - My Orders Last 24 Hours: My Active Orders 07/11/19 22:08 EKG Documentation Completion [RC] STAT Oxygen Therapy, ED [RC] ASDIRECTED Chest 1V Frontal [CR] Stat 07/11/19 23:15 Sodium Chloride 0.9% [Normal Saline] 1,000 ml IV ASDIRECTED - Assessment/Plan Last 24 Hours: My Active Orders 07/11/19 22:08 EKG Documentation Completion [RC] STAT Oxygen Therapy, ED [RC] ASDIRECTED Chest 1V Frontal [CR] Stat 07/11/19 23:15 Sodium Chloride 0.9% [Normal Saline] 1,000 ml IV ASDIRECTED
[2019-07-11] MEDS ORDERED: Sodium Chloride 0.9% 1,000 ML IV SCH (23:15)
[2019-07-12] MEDS ORDERED: Potassium Chloride 20 MEQ Tab.ER PO ONE (00:19)
[2019-07-12 01:16] VITALS: BP 103/69; PULSE 94
--- NOTE | 2019-07-12 07:49 | CR ---
Chest: Portable view of the chest was obtained. Comparison: No prior chest imaging is available. Heart size and mediastinum are normal. Lungs are clear with no acute parenchymal change. Bony structures are unremarkable. Impression: 1. Nothing acute is appreciated on portable chest x-ray. Diagnostic code #1 Study was dictated in MDT
== END 2019-07-12 01:33 | disposition home or self-care (01) ==
LOC: JD.ED 21:53
DX: R07.89 Other chest pain (principal); R00.0 Tachycardia, unspecified; E87.6 Hypokalemia; E83.42 Hypomagnesemia; Z86.718 Personal history of other venous thrombosis and embolism; Z86.711 Personal history of pulmonary embolism
CPT/HCPCS: 36415; 71045; 80053; 80306; 80307; 81003; 81025; 83735; 84443; 84484; 85007; 85027; 85379; 85610; 85730; 86140; 93005; 99285; A9270; J7030; 93010; 99284